=== PATIENT | male | born 1950 | race Caucasian/White ===

== ENCOUNTER 2018-10-22 19:15 | Inpatient (IN) | payer OTHER ==
[~2018-10-22] VITALS: Ht 182.9 cm; Wt 80.4 kg
[~2018-10-22 19:15] MED LIST: FERATAB300 MG PO; PROPRANOLOL HCL10 MG PO
[2018-10-22 19:48] LABS: BASOPHIL % 1.4 % (0-2)
[2018-10-22 19:51] LABS: PLATELET COUNT 109 x10^3mcL (130-400); RED CELL DISTRIBUTION WIDTH 17.8 % (11.5-14.5)
[2018-10-22 19:54] LABS: CALCIUM 8.5 mg/dL (8.5-10.1); CARBON DIOXIDE 23.4 mmol/L (21-32); CHLORIDE SERUM 107 mmol/L (98-107); CREATININE SERUM 0.9 mg/dL (0.7-1.3); GFR1 > 60 mL/min; GLUCOSE SERUM 108 mg/dL (74-106); POTASSIUM SERUM 3.5 mmol/L (3.5-5.1); SODIUM SERUM 141 mmol/L (136-145)
[2018-10-22 19:59] LABS: ALKALINE PHOSPHATASE 140 U/L (46-116); ALT/SGPT 21 U/L (16-63); AST/SGOT 27 U/L (15-37); BILIRUBIN TOTAL 0.5 mg/dL (0.20-1.00); LIPASE 285 IU/L (73-393); TOTAL PROTEIN, SERUM 6.8 g/dL (6.4-8.2)
[2018-10-22 20:00] LABS: ALBUMIN 3.1 g/dL (3.4-5.0)
[2018-10-22 23:29] VITALS: BP 133/85
[2018-10-22 23:35] VITALS: Ht 182.9 cm; Wt 80.4 kg
[2018-10-23 05:37] VITALS: BP 126/82
[2018-10-23 06:46] LABS: CALCIUM 8.1 mg/dL (8.5-10.1); CARBON DIOXIDE 24.4 mmol/L (21-32); CHLORIDE SERUM 108 mmol/L (98-107); CREATININE SERUM 0.9 mg/dL (0.7-1.3); GFR1 > 60 mL/min; GLUCOSE SERUM 91 mg/dL (74-106); POTASSIUM SERUM 3.8 mmol/L (3.5-5.1); SODIUM SERUM 141 mmol/L (136-145)
[2018-10-23 06:52] LABS: BASOPHIL % 1.2 % (0-2)
[2018-10-23 08:04] LABS: PLATELET COUNT 81 x10^3mcL (130-400); RED CELL DISTRIBUTION WIDTH 17.7 % (11.5-14.5)
[2018-10-23 09:38] VITALS: BP 124/75
[2018-10-23 12:03] VITALS: BP 124/75
[2018-10-23 12:23] VITALS: BP 125/71
== END 2018-10-23 15:54 | disposition home or self-care (01) | DRG 605 ==
LOC: ED 19:15 → DU 22:38
PROVIDERS: Specialist; ADMIT Internal Medicine
DX: S20.212A Contusion of left front wall of thorax, initial encounter (principal); S00.33XA Contusion of nose, initial encounter; S00.531A Contusion of lip, initial encounter; K72.90 Hepatic failure, unspecified without coma; K74.69 Other cirrhosis of liver; R09.1 Pleurisy; B18.2 Chronic viral hepatitis C; I25.10 Atherosclerotic heart disease of native coronary artery without angina pectoris; V49.9XXA Car occupant (driver) (passenger) injured in unspecified traffic accident, initial encounter; Y92.480 Sidewalk as the place of occurrence of the external cause; Z68.24 Body mass index [BMI] 24.0-24.9, adult
CPT/HCPCS: Q0092

== ENCOUNTER 2018-12-12 10:02 | Emergency (ER) | payer OTHER ==
[~2018-12-12] VITALS: Ht 182.9 cm; Wt 83.5 kg
[2018-12-12 10:08] VITALS: Ht 182.9 cm; Wt 83.5 kg
[2018-12-12 10:50] LABS: PLATELET COUNT 77 x10^3mcL (130-400); RED CELL DISTRIBUTION WIDTH 20.3 % (11.5-14.5)
[2018-12-12 10:55] LABS: CALCIUM 8.3 mg/dL (8.5-10.1); CARBON DIOXIDE 23.9 mmol/L (21-32); CHLORIDE SERUM 111 mmol/L (98-107); CREATININE SERUM 0.9 mg/dL (0.7-1.3); GFR1 > 60 mL/min; GLUCOSE SERUM 151 mg/dL (74-106); POTASSIUM SERUM 3.6 mmol/L (3.5-5.1); SODIUM SERUM 145 mmol/L (136-145)
[2018-12-12 10:59] LABS: ALKALINE PHOSPHATASE 147 U/L (46-116); ALT/SGPT 31 U/L (16-63); BILIRUBIN TOTAL 0.5 mg/dL (0.20-1.00); CHOLESTEROL 139 mg/dL (<200); TOTAL PROTEIN, SERUM 6.4 g/dL (6.4-8.2)
[2018-12-12 11:10] LABS: FREE T4 0.39 ng/dL (0.76-1.46)
[2018-12-12 11:11] LABS: FREE THYROXINE INDEX 0.5 ug/dL (1.4-4.5); T4(THYROXINE) 1.9 ug/dL (4.7-13.3)
[2018-12-12 11:14] LABS: T3 TOTAL 0.77 ng/mL
[2018-12-12 11:18] LABS: AST/SGOT 36 U/L (15-37)
[2018-12-12 11:20] LABS: ALBUMIN 3.2 g/dL (3.4-5.0); CHOLESTEROL/HDL RATIO 9.9; HDL CHOLESTEROL 14 mg/dL (40-60); TRIGLYCERIDES 452 mg/dL (<150)
[2018-12-12 12:01] LABS: BAND NEUTROPHIL 4 % (0-10); BASOPHIL 0 % (0-2); MONOCYTE 6 % (0-7); SEGMENTED NEUTROPHILS 55 % (37-75)
[2018-12-12 12:03] LABS: PLATELET MORPHOLOGY PLATELETS DECREASED; rbc morphology (normal/abnorm) ABNORMAL (NORMAL)
[2018-12-12 13:01] VITALS: BP 131/87
== END 2018-12-12 13:01 | disposition home or self-care (01) ==
LOC: ED 10:02
PROVIDERS: Specialist
DX: R42 Dizziness and giddiness (principal); D61.818 Other pancytopenia; K74.60 Unspecified cirrhosis of liver; I10 Essential (primary) hypertension; Z88.0 Allergy status to penicillin; Z98.890 Other specified postprocedural states
CPT/HCPCS: 84439; Q0092

== ENCOUNTER 2018-12-17 18:55 | Inpatient (IN) | payer OTHER ==
[~2018-12-17] VITALS: Ht 185.4 cm; Wt 80.8 kg
[2018-12-17 19:07] VITALS: Ht 185.4 cm; Wt 80.8 kg
--- NOTE | 2018-12-17 19:16 | NUR ---
PT AWAKE AND ALERT. PT PRESENTS TO ED WITH C/O "COFFEE GROUND, BLACK STOOL" SINCE YESTERDAY". PT DENIES N/V/D. PARAMEDICS REPORT PT'S HOME HAD BM ALL OVER. PT REPORTS HE HAD PAIN IN THE SUPRAPUBIC REGION BEFORE DIARRHEA BEGAN. PARAMEDICS REPORT PT'S VITALS WERE STABLE IN ROUTE. PT IS PALE AND JAUNDICED IN APPEARANCE. PT PLACED ON FULL CM. VITALS STABLE AT THIS TIME. MSE COMPLETED BY DR WALDROP. NAD. RESP E/U
--- NOTE | 2018-12-17 19:30 | NUR ---
LINE CLEAN, PATIENT INCONTINENT OF URINE. SALINE LOCK INSERTED AND DLUID BOLUS IS INFUSING,
--- NOTE | 2018-12-17 19:38 | NUR ---
REPORT GIVEN TO JACKIE COAL CUTTER NURSE TO ASSUME CARE OF PT
[2018-12-17 19:49] LABS: PLATELET COUNT 124 x10^3mcL (130-400)
[2018-12-17 19:51] LABS: CALCIUM 8.9 mg/dL (8.5-10.1); CARBON DIOXIDE 20.5 mmol/L (21-32); CHLORIDE SERUM 113 mmol/L (98-107); GFR1 > 60 mL/min; GLUCOSE SERUM 106 mg/dL (74-106); SODIUM SERUM 148 mmol/L (136-145)
[2018-12-17 20:03] LABS: ALKALINE PHOSPHATASE 122 U/L (46-116); ALT/SGPT 21 U/L (16-63); AST/SGOT 30 U/L (15-37); BILIRUBIN TOTAL 0.98 mg/dL (0.20-1.00); TOTAL PROTEIN, SERUM 6.5 g/dL (6.4-8.2)
[2018-12-17] MEDS ORDERED: FLO4 PO (20:14)
[2018-12-17] MEDS ORDERED: MELATONIN3 MG PO (20:14)
[2018-12-17] MEDS ORDERED: MULTIVITAMIN1 SGL PO (20:15)
--- NOTE | 2018-12-17 21:30 | NUR ---
INCONTINENT OF STOOL, LIQUID GREEN STOOL. DIAPER CHANGED.
--- NOTE | 2018-12-17 22:05 | NUR ---
REPORT WAS GIVEN TO YUNI
--- NOTE | 2018-12-17 22:19 | NUR ---
PATIENT HAD ANOTHER DARK GREEN STOOL . DIAPER CHANGED
[2018-12-17 22:46] VITALS: BP 125/72
--- NOTE | 2018-12-17 22:49 | NUR ---
RECEIVED PT FROM ED VIA MEGAN. ORIENTED PT TO ROOM AND SURROUNDINGS. IV NOTED TO RAC PATENT AND INTACT. TELE 22 PLACED ON PT READING NSR. INSTRUCTED PT ON THE USE OF CALL LIGHT FOR ASSISTANCE. ENDORSED PT TO PRIMARY NURSE YUNI
--- NOTE | 2018-12-17 23:18 | NUR ---
SANDOSTATIN DRIP STARTED BY [place] JUAREZ RA 25ML/HR .
--- NOTE | 2018-12-18 00:11 | NUR ---
AT 2249 I RECEIVED PT FROM [facility] DX OF GI BLEED , PT'S AAOX4 NO ACUTE DISTRESS NOTED , ABD SOFT BS ACTIVE X4, PER ER NURSE PT HAD TOTAL OF 4 GREENISH WATERY STOOL , LUNG SOUNDS CTA . TRACE EDEMA NOTED BILAT LOWER EXTR , HL TO LAC INTACT FLUSHING WELL , PT'S ON TELE NUMBER 22 THAT SHOWS NSR HR 72. CALL LIGHT WITHIN PT'S REACH , WILL CON'T TO MONITOR AND ASSIST PT WITH CARE .
--- NOTE | 2018-12-18 05:16 | NUR ---
I HAVE REVIEWED THE DATA COLLECTION BY [employer] FOR [employer]ALE PURCHASING AGENT (NAME):YUNI FRY ENTERED ON (DATE/TIME): I CONCUR WITH THE DATA AND ANY EXCEPTIONS OR COMMENTS ARE LISTED BELOW:
[2018-12-18 05:36] VITALS: BP 113/64
--- NOTE | 2018-12-18 06:33 | NUR ---
NO CHANGES OF CONDITION NOTED, PT HAD LARGE GREENISH AND WATERY STOOL UNABLE TO COLLECT STOOL AT THE MOMENT PT 'S INCONTINENT , PIV INTACT INFUSING WELL SANDOSTATIN AT 25ML/HR D5.45 NS RA 50ML/HR , TELE NSR . CALL LIGHT WITHIN PT'S REACH , WILL CON'T TO MONITOR AND ASSIST PT WITH CARE .
[2018-12-18 07:07] LABS: CALCIUM 7.7 mg/dL (8.5-10.1); CARBON DIOXIDE 21.5 mmol/L (21-32); CHLORIDE SERUM 114 mmol/L (98-107); CREATININE SERUM 0.9 mg/dL (0.7-1.3); GFR1 > 60 mL/min; GLUCOSE SERUM 123 mg/dL (74-106); SODIUM SERUM 145 mmol/L (136-145)
--- NOTE | 2018-12-18 07:20 | NUR ---
RECEIVED PATIENT FROM HOT BOX CHECKER NURSE. PATIENT IS RESTING WITH BOTH EYES CLOSED, AROUSABLE. TELE#22, SR, HR 78. ON ROOM AIR, BREATHING EVEN AND UNLABORED. FALL PREC IN PLACE DUE TO GEN WEAKNESS. IV NOTED TO RAC, IVF AND SANDOSTATIN GTT INFUSING WELL ORDERED, NO S/S ERYTHEMA AT SITE. CALL LIGHT WITHIN EASY REACH. WILL CONTINUE PLAN OF CARE.
--- NOTE | 2018-12-18 07:47 | NUR ---
REPORT GIVEN TO GI LAB. PLAN IS FOR EGD AROUND 1100. PATIENT TO REMAIN STRICT NPO.
[2018-12-18 08:05] LABS: PLATELET COUNT 85 x10^3mcL (130-400); RED CELL DISTRIBUTION WIDTH 20.4 % (11.5-14.5)
[2018-12-18 08:13] VITALS: BP 116/66
--- NOTE | 2018-12-18 09:43 | NUR ---
PATIENT TAKEN TO GI LAB AT THIS TIME.
--- NOTE | 2018-12-18 11:08 | NUR ---
PATIENT BACK FROM GI LAB AT THIS TIME. DROWSY. VS STABLE AND FOLLOWS: BP 99/60 HR 66 O2 SAT 93% ON 3L NC, RR 14. WILL CONTINUE TO MONITOR.
[2018-12-18 12:18] VITALS: BP 120/65
[2018-12-18 16:29] VITALS: BP 132/67
--- NOTE | 2018-12-18 18:46 | NUR ---
PATIENT RESTING EASY. IN NO ACUTE DISTRESS. PATIENT CARE TO BE ENDORSED TO HIMS CLERK NURSE.
--- NOTE | 2018-12-18 19:56 | NUR ---
PT'S IN BED DENY PAIN AAOX4 , BS ACTIVE X4 LOOSE GREENISH STOOL NOTED, NO ACTIVE BLEEDING NOTED, LUNG SOUND CTA , ON TELE 22 THAT SHOWS NSR , PIV INTACT INFUSING WELL D5.45 NS INFUSING AT 80ML/HR SUSU AT 25ML/HR . TRACE EDEMA NOTED BILAT LOWER EXTR . CALL LIGHT WITHIN PT;S REACH , WILL CON'T TO MONITOR PT CLOSELY .
[2018-12-18 20:21] VITALS: BP 112/70
[2018-12-19] VITALS (11 sets, daily range): BP systolic 91–113; BP diastolic 55–71
--- NOTE | 2018-12-19 01:33 | NUR ---
PT REFUSED LACTULOSE STATED I DO NOT HAVE PROBLEMS GOING TO THE BATHROOM "
--- NOTE | 2018-12-19 05:06 | NUR ---
I HAVE REVIEWED THE DATA COLLECTION BY EMT I/99 (NAME):UYNI FRY ENTERED ON (DATE/TIME): I CONCUR WITH THE DATA AND ANY EXCEPTIONS OR COMMENTS ARE LISTED BELOW:
[2018-12-19 06:43] LABS: CALCIUM 7.6 mg/dL (8.5-10.1); CARBON DIOXIDE 24.4 mmol/L (21-32); CHLORIDE SERUM 112 mmol/L (98-107); GFR1 > 60 mL/min; GLUCOSE SERUM 114 mg/dL (74-106); MAGNESIUM 1.8 mg/dL (1.8-2.4); POTASSIUM SERUM 3.9 mmol/L (3.5-5.1); SODIUM SERUM 144 mmol/L (136-145)
--- NOTE | 2018-12-19 06:45 | NUR ---
NO CHANGES OF CONDITION NOTED , ALL DUE ,MEDS GIVEN NO REACTION NOTED , PIV INTACT INFUSION WELL , TELE NSR , CALL LIGHT WITHIN PT;S REACH . PT HAD NO BM THIS SHIFT , WILL CON'T TO MONITOR PT CLOSELY.
--- NOTE | 2018-12-19 07:25 | NUR ---
RECEIVED PT RESTING IN BED. AAOX4. RESP EVEN AND UNLABORED ON RA. NO C/O ABD PAIN. PT GETTING US ABDOMEN DONE AT THIS TIME. IVF AND SANDOSTATIN INFUSING, NO REDNESS OR SWELLING TO IV SITE. SALINE LOCK TO R HAND, NO REDNESS OR SWELLING. BED IN LOW POSITION, CALL LIGHT WITHIN REACH. WILL CONTINUE TO MONITOR.
--- NOTE | 2018-12-19 08:04 | NUR ---
RECEIVED CALL FROM TELE REGARDING PT HAVING 3 BEAT PAUSE ON MONITOR. PT ASYMPTOMATIC. AAOX4. EATING BREAKFAST. DENIES CP OR PRESSURE. VS: TEMP 98.7, BP 110/69 (MAP 87), HR 65, RR 20, O2 SAT 93% ON RA. WILL CONTINUE TO MONITOR.
[2018-12-19 08:28] LABS: BASOPHIL % 1.4 % (0-2)
[2018-12-19 08:29] LABS: PLATELET COUNT 97 x10^3mcL (130-400); RED CELL DISTRIBUTION WIDTH 20.2 % (11.5-14.5)
--- NOTE | 2018-12-19 12:10 | NUR ---
PT RESTING IN BED. NO ACUTE DISTRESS. DR. BRADFORD AT BEDSIDE TO EVALUATE PT.
--- NOTE | 2018-12-19 13:58 | NUR ---
DR. BAILEY MADE AWARE OF PT'S 3 SECOND PAUSE ON TELE. NEW ORDER FOR CARDIOLOGY CONSULT DR. BRENNAN. WILL CONTINUE TO MONITOR.
--- NOTE | 2018-12-19 14:46 | NUR ---
FIRST UNIT OF PRBC TRANSFUSION STARTED AT THIS TIME. VERIFIED WITH TAMICA OSBORNE. PT EDUCATED REGARDING ADVERSE REACTIONS PRIOR TO TRANSFUSION. PT AAOX4. NO ADVERSE REACTIONS NOTED AT THIS TIME. VSS. WILL CONTINUE TO MONITOR.
--- NOTE | 2018-12-19 17:57 | NUR ---
FIRST UNIT OF PRBC FINISHED. NO ADVERSE REACTIONS NOTED. PT NOW EATING DINNER. WILL STARTED SECOND UNIT OF PRBC AFTER PT IS FINISHED EATING. WILL CONTINUE TO MONITOR.
--- NOTE | 2018-12-19 18:53 | NUR ---
SECOND UNIT OF PRBC STARTED. NO ADVERSE REACTION NOTED AT THIS TIME. PT AAOX4. RESTING IN BED. NO REDNESS OR SWELLING NOTED TO RAC AND R HAND IV SITES. HOB SLIGHTLY ELEVATED. BED IN LOW POSITION, CALL LIGHT WITHIN REACH. WILL ENDORSE TO ONCOMING SHIFT.
--- NOTE | 2018-12-19 20:48 | NUR ---
RECEIVED PT IN BED AAOX4 , PT'S RECEIVING BLOOD V/S WNL NO S/S OF REACTION NOTED, LUNG SOUNDS CTA ABD SOFT BS ACTIVE NO LOOSE STOOL N OTED AT THE MOMENT , TRACE EDMA NOTED BILAT LOWER EXT . TELE 22 SHOWS NSR HR 70
--- NOTE | 2018-12-19 22:50 | NUR ---
COMPLETED 2ND UNIT OF PRBC NO REACTION NOTED, V/S 98.6 ,HR 67, BP 122/66 SAT 96%.
[2018-12-20 05:40] VITALS: BP 103/62
[2018-12-20 06:44] LABS: CALCIUM 8.1 mg/dL (8.5-10.1); CARBON DIOXIDE 22.5 mmol/L (21-32); CHLORIDE SERUM 113 mmol/L (98-107); GFR1 > 60 mL/min; GLUCOSE SERUM 109 mg/dL (74-106); MAGNESIUM 1.8 mg/dL (1.8-2.4); POTASSIUM SERUM 4.2 mmol/L (3.5-5.1); SODIUM SERUM 147 mmol/L (136-145)
--- NOTE | 2018-12-20 06:51 | NUR ---
Y NO CHANGES OF CONDITION NOTED, ALL DUE MEDS GIVEN NO REACTION NOTED, PIV INTACT INFUSING WELL , TELE NSR
[2018-12-20 07:11] LABS: BASOPHIL % 0.6 % (0-2)
--- NOTE | 2018-12-20 07:24 | NUR ---
RECEIVED PT RESTING IN BED, SLEEPING BUT AROUSABLE. NO ACUTE DISTRESS. RESP EVEN AND UNLABORED ON RA. SANDOSTATIN INFUSING TO RFA IV, NO REDNESS OR SWELLING NOTED. SALINE LOCKED TO R HAND, NO REDNESS OR SWELLING. BED IN LOW POSITION, CALL LIGHT WITHIN REACH. WILL CONTINUE TO MONITOR.
[2018-12-20 07:43] LABS: PLATELET COUNT 72 x10^3mcL (130-400)
[2018-12-20 08:58] VITALS: BP 103/52
[2018-12-20 10:22] VITALS: BP 103/52
--- NOTE | 2018-12-20 11:53 | NUR ---
PT RESTING IN BED. NO ACUTE DISTRESS. NO C/O PAIN. IVF INFUSING, NO REDNESS OR SWELLING NOTED TO IV SITE. HOB SLIGHLTY ELEVATED. CALL LIGHT WITHIN REACH. WILL CONTINUE TO MONITOR.
[2018-12-20 13:05] VITALS: BP 99/53
[2018-12-20 16:56] VITALS: BP 95/55
--- NOTE | 2018-12-20 17:57 | NUR ---
PT SITTING UP ON THE SIDE OF THE BED EATING DINNER. NO ACUTE DISTRESS. RESP EVEN AND UNLABORED ON RA. NO REPORT OF BM THROUGHOUT SHIFT. IVF INFUSING, NO REDNESS OR SWELLING NOTED. CALL LIGHT WITHIN REACH. WILL CONTINUE TO MONITOR.
--- NOTE | 2018-12-20 18:59 | NUR ---
PT RESTING IN BED. NO ACUTE DISTRESS. SLEEPING BUT EASILY AROUSABLE. RESP EVEN AND UNLABORED ON RA. IVF INFUSING, NO REDNESS OR SWELLING NOTED. ASSISTED WITH URINAL. BED IN LOW POSITION, CALL LIGHT WITHIN REACH. WILL ENDORSE TO ONCOMING SHIFT.
--- NOTE | 2018-12-20 20:00 | NUR ---
PT A/A/O X4. DENIES DIZZINESS AND HEADACHE. BREATH SOUNDS CLEAR. BREATHING EVEN AND UNLABORED ON ROOM AIR. DENIES CHEST PAIN AND PRESSURE. BOWEL SOUNDS ACTIVE. NO C/O C/O N/V AND ABD PAIN. IV INTACT ON THE RAC INFUSING WITH SANDOSTATIN AT 25 ML/HR. IV SALINE LOCK NOTED ON THE RIGHT HAND. MADE PT COMFORTABLE. PLACED CALL LIGHT WITH IN REACH. WILL CONTINUE TO MONITOR.
[2018-12-20 20:55] VITALS: BP 102/54
--- NOTE | 2018-12-21 00:58 | NUR ---
PT RESTING WITH EYES CLOSED. NO DISTRESS AND DISCOMFORT NOTED. WILL CONTINUE TO MONITOR.
[2018-12-21 06:02] VITALS: BP 113/63
[2018-12-21 06:28] LABS: BASOPHIL % 0.8 % (0-2)
[2018-12-21 06:40] LABS: ALKALINE PHOSPHATASE 103 U/L (46-116); ALT/SGPT 23 U/L (16-63); AST/SGOT 37 U/L (15-37); BILIRUBIN TOTAL 0.79 mg/dL (0.20-1.00); CALCIUM 7.8 mg/dL (8.5-10.1); CARBON DIOXIDE 22.2 mmol/L (21-32); CHLORIDE SERUM 112 mmol/L (98-107); CREATININE SERUM 1.1 mg/dL (0.7-1.3); GFR1 > 60 mL/min; GLUCOSE SERUM 104 mg/dL (74-106); MAGNESIUM 1.8 mg/dL (1.8-2.4); POTASSIUM SERUM 3.9 mmol/L (3.5-5.1); SODIUM SERUM 143 mmol/L (136-145)
[2018-12-21 06:45] LABS: ALBUMIN 2.6 g/dL (3.4-5.0); TOTAL PROTEIN, SERUM 5.5 g/dL (6.4-8.2)
[2018-12-21 06:50] LABS: PLATELET COUNT 77 x10^3mcL (130-400); RED CELL DISTRIBUTION WIDTH 18.1 % (11.5-14.5)
--- NOTE | 2018-12-21 07:20 | NUR ---
RECEIVED PT FROM HE[facility]ICKER. PT AWAKE, ALERT. A/OX4. PT ON ROOM AIR WITH NO RESP DISTRESS NOTED. LUNGS CTA. PT ON TELE #22, DENIES CHEST PAIN OR SOB. PERIPHERAL PULSES PALPABLE, NO EDEMA NOTED. ACTIVE BOWEL SOUNDS NOTED. PT DENIES ABDOMINAL PAIN AT THIS TIME. PT NOTED TO HAVE GENERALIZED WEAKNESS. IV ACCESS RFA C/D/I INFUSING SANDOSTATIN AT 25ML/HR. SAFETY MEASURES IN PLACE, BED LOW AND LOCKED. CALL LIGHT WITHIN REACH.
[2018-12-21 09:06] VITALS: BP 109/65
--- NOTE | 2018-12-21 10:30 | NUR ---
PT WITH NO ACUTE DISTRESS OR DISCOMFORT NOTED AT THIS TIME. SAFETY MAINTAINED.
[2018-12-21 11:54] VITALS: BP 109/65
[2018-12-21 12:46] VITALS: BP 109/65
[2018-12-21 12:56] VITALS: BP 117/73
--- NOTE | 2018-12-21 13:20 | NUR ---
PT DISCHARGE INSTRUCTIONS/EDUCATION PROVIDED TO THE PT. VERBALIZED UNDERSTANDING. IV REMOVED FROM RAC AND RIGHT HAND WITH CATHETER INTACT. NO REDNESS, BLEEDING OR SWELLING NOTED. PT TAKEN DOWN BY WHEELCHAIR TO [employer] FOR DISCHARGE. SAFETY MAINTAINED.
== END 2018-12-21 13:25 | disposition home or self-care (01) | DRG 432 ==
LOC: ED 18:55 → DU 21:40
PROVIDERS: Internal Medicine Gastroenterology; Internal Medicine Pulmonary Disease; Specialist; ADMIT Internal Medicine
PROC: 06L38CZ Occlusion of Esophageal Vein with Extraluminal Device, Via Natural or Artificial Opening Endoscopic (ICD-10-PCS; principal; 2018-12-18 11:00)
DX: K74.69 Other cirrhosis of liver (principal); I85.11 Secondary esophageal varices with bleeding; K76.6 Portal hypertension; E87.1 Hypo-osmolality and hyponatremia; B18.2 Chronic viral hepatitis C; K31.89 Other diseases of stomach and duodenum; N40.0 Benign prostatic hyperplasia without lower urinary tract symptoms; Z88.0 Allergy status to penicillin; Z68.24 Body mass index [BMI] 24.0-24.9, adult
CPT/HCPCS: 43235; 87046; 87046-59; G0378; J1200; J1610; J2250; J2270; J2310; J2354; J3010; J3490; J7030; J7050; P9016; Q0092